=== PATIENT | female | born 1995 | race Caucasian/White ===

== ENCOUNTER 2019-01-09 16:47 | Emergency (ER) | payer OTHER ==
[~2019-01-09] VITALS: Ht 172.7 cm; Wt 57.7 kg
[~2019-01-09 16:47] MED LIST: FLUC150T PO
[2019-01-09 17:00] VITALS: Ht 172.7 cm; Wt 57.7 kg
[2019-01-09] MEDS ORDERED: LIDOCAINE 1% (MPF) 5 ML VIAL INFIL ONE (20:30)
[2019-01-09] MEDS ORDERED: AZITHROMYCIN 500 MG TAB PO ONE (20:30)
[2019-01-09] MEDS ORDERED: CEFTRIAXONE 250 MG INJ IM ONE (20:30)
[2019-01-09 21:28] VITALS: BP 109/65; PULSE 79; RESP 16
== END 2019-01-09 21:30 | disposition home or self-care (01) ==
LOC: FTE 16:47
DX: N89.8 Other specified noninflammatory disorders of vagina (principal); J45.909 Unspecified asthma, uncomplicated; Z11.3 Encounter for screening for infections with a predominantly sexual mode of transmission
CPT/HCPCS: 81003; 81025; 87210; 87591; 96372; J0696; Z7502; Z7610